=== PATIENT | female | born 1940 | race Caucasian/White ===

== ENCOUNTER 2025-05-26 09:04 | Outpatient (AMB) | payer BC, SELFPAY ==
--- NOTE | 2025-05-26 09:25 | A.OFFPC_ITS ---
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 History of Present Illness The patient is an 84-year-old female presenting with the management of multiple chronic conditions including frontal lobe dementia and hypertension. Frontal lobe dementia: The patient was diagnosed with frontal lobe dementia in [place] after exhibiting repetitive questioning and memory loss. The condition was identified when she began forgetting conversations shortly after they occurred. She was prescribed memantine, which is administered as a full tablet in the morning and a half tablet in the evening to manage dizziness associated with her blood pressure medication. Hypertension: The patient has a history of fluctuating blood pressure, with recent readings showing elevated levels at 178/85 mmHg. At home, her blood pressure is typically normal, suggesting situational elevation due to changes in routine and environment. Heart murmur: A heart murmur was detected during the examination, which had not been previously identified. Thyroid disorder: The patient is on medication for hypothyroid with levothyroxine 50 mcg daily Osteopenia: The patient is due for a bone density scan, with a previous diagnosis of osteopenia but not osteoporosis. History of fall with spinal fusion: The patient experienced a fall approximately a year and a half ago, resulting in a spinal fracture that required surgical fusion. She reports occasional back pain and has been advised to undergo physical therapy to improve her gait. Decreased appetite: The patient has a decreased appetite, requiring reminders to eat, which has led to weight gain since moving from [place]. Dry skin: The patient has a history of dry skin, managed with topical lotions. Surgical History: - Spinal fusion surgery following a fall Medications: - Memantine 5 mg for frontal lobe jair ia - Diltiazem 120 mg for hypertension - Levothyroxine 50 mcg for thyroid disor inez - Simvastatin 40 mg for hyperlipidemia - Farxiga 10 mg for heart protection - B complex with vitamin C for general h ealth Social History: - Family status: for over 60 yea rs - Housing: Recently moved from [place] t o live with family - Functional status: Requires assistance with medication and reminders to eat Review of Systems - Neurological: Reports memory loss and repetitive questioning - Cardiovascular: Denies previous awaren ess of heart murmur - Endocrine: Reports thyroid disorder - Musculoskeletal: Reports occasional ba ck pain post-fall - Dermatological: Reports dry skin 10-point ROS reviewed and negative excep t as noted in HPI Past Medical History - Frontal lobe dementia - Hypertension - Thyroid disorder - Osteopenia - History of fall with spinal fusion Health Maintenance - Bone density scan recommended for oste openia Physical Exam General: Well-appearing, in no acute distress. Vital signs: Blood pressure elevated at 178/85. HEENT: Normocephalic, atraumatic. PERRLA, EOMI. Conjunctiva clear, sclera anicteric. Oropharynx clear, mucous membranes moist. TMs intact bilaterally. Ear wax noted in one ear. Neck: Supple, no lymphadenopathy, no thyromegaly, no JVD or carotid bruits. Cardiovascular: RRR, normal S1/S2, heart murmur detected, no rubs or gallops. Peripheral pulses 2+ and symmetric. No edema. Respiratory: Lungs clear to auscultation bilaterally, no wheezes, rales, or rhonchi. Normal effort. Abdomen: Soft, non-tender, non-distended. Normoactive bowel sounds. No hepatosplenomegaly, no masses. MSK: Full range of motion, no joint swelling or deformity. History of fall with left upper side fusion. Normal gait, though patient has been dragging feet post- fall. Skin: Warm, dry, intact. No rashes, lesions, or pallor. History of dry skin. Neuro: Alert and oriented x3. Cranial nerves II-XII intact. Strength 5/5 throughout. Sensation intact. Reflexes 2+ symmetric. Normal coordination and gait. Psych: Appropriate mood and affect. Normal judgment and insight. Noted memory issues consistent with front lobe dementia diagnosis. Plan 1. Frontal Lobe Dementia - Continue memantine with adjusted dosin g to manage dizziness. 2. Hypertension - Monitor blood pressure at home to asse ss for situational hypertension. 3. Heart Murmur - Referral to cardiology for echocardiog dereck and electrocardiogram. 4. Thyroid Disorder - Continue current thyroid medication re gimen. 5. Osteopenia - Schedule bone density scan to monitor progression. 6. History Of Fall With Spinal Fusion - Recommend physical therapy to improve gait and manage back pain. 7. Decreased Appetite - Referral to batch mixing truck driver for nutritional support and appetite management. 8. Dry Skin - Prescribe ammonium lactate lotion for skin hydration. Discussion Notes During the visit, I discussed the management of the patient's chronic conditions, including the continuation of memantine for dementia and the need for cardiology referral for the newly detected heart murmur. We also talked about the importance of monitoring blood pressure at home and the upcoming bone density scan. I emphasized the need for physical therapy to address gait issues post-fall and referred the patient to a batch mixing truck driver to manage her decreased appetite. Additionally, I prescribed ammonium lactate lotion for her dry skin. Patient Instructions - Continue taking memantine as prescribe d, adjusting the evening dose if dizziness occurs. - Monitor blood pressure regularly at [facility] and report any significant changes. - Attend cardiology appointment for furt her evaluation of heart murmur. - Schedule and attend bone density scan. - Follow up with physical therapy to imp rove walking and manage back pain. - Meet with batch mixing truck driver to discuss nutriti onal needs and appetite management. - Apply ammonium lactate lotion twice da abdirizak for dry skin. Medical Decision Making In managing this patient, I prioritized addressing her chronic conditions, particularly the frontal lobe dementia and hypertension. The newly detected heart murmur necessitates further evaluation by cardiology, and the patient's blood pressure should be monitored at home to differentiate between chronic and situational hypertension. The bone density scan is crucial for assessing osteopenia progression. Physical therapy is recommended to aid in recovery from her fall and improve her gait. Nutritional support is essential due to her decreased appetite, and skin hydration will be managed with ammonium lactate lotion. Total time spent caring for the patient today was _30 minutes. This includes time spent before the visit reviewing the chart, time spent documenting, and time spent reviewing laboratory results, diagnostic imaging, medications, performing a medically necessary evaluation, counseling on diagnoses, care coordination, ordering appropriate tests, ordering appropriate medications. [facility] Medical History (Updated 05/26/25 @ 10:49 by Juan Rosario MD) Decreased appetite History of fall Osteoporosis screening Post-menopause Systolic murmur Family History (Updated 05/26/25 @ 09:26 by Esteban Brown MA) Father No problems noted. Mother No problems noted. Social History Housing: House Patient Tobacco Use Status: Never used Tobacco service: No Current occupational status: retired Cognitive needs: No Hearing needs: No Vision needs: Yes (rx glasses) Questionnaire PHQ-9 Over the last 2 weeks, how often have you been bothered by any of the following problems? 1. Little interest or pleasure in doing things: not at all 2. Feeling down, depressed, or hopeless: not at all 3. Trouble falling or staying asleep, or sleeping too much: not at all 4. Feeling tired or having little energy: not at all 5. Poor appetite or overeating: several days 6. Feeling bad about yourself - or that you are a failure or have let yourself or your family down: not at all 7. Trouble concentrating on things, such as reading the newspaper or watching television: not at all 8. Moving or speaking so slowly that other people could have noticed. Or the opposite - being so fidgety or restless that you have been moving around a lot more than usual: not at all 9. Thoughts that you would be better off or of hurting yourself in some way: not at all Total score: 1 Source: Developed by Drs. Brice Mayers, Geeta Gibson, Francisco Staples and colleagues, with an educational harriett from [employer]. Thrive Questionnaire Date Thrive assessed: 05/25/25 I am a: Patient What is your living situation today?: I have a steady place to live Within the past 12 months, did the food you bought not last and you didn't have the money to get more?: Never true Within the past 12 months, did you worry whether your food would run out before you got money to buy more?: Never true Do you have trouble paying for medicines?: No Do you have trouble getting transportation to medical appointments?: No Do you have trouble paying your heating and electricity bill?: No Do you have trouble taking care of your child, family member or friend?: No Do you have trouble with day-to-day activities such as bathing, preparing meals, shopping, managing finances, etc.?: No Are you currently unemployed and looking for a job?: No Are you interested in more education?: No Please select the resources that you would like help with: None Currently or been in a relationship where the following occur: No concerns reported THRIVE Score: 0 AUDIT C Alcohol Use Questionnaire (AUDIT-C) 1. How often do you have a drink containing alcohol?: Never 2. How many drinks containing alcohol do you have on a typical day when you are drinking?: 1 or 2 3. How often do you have six or more drinks on one occasion?: Never Total Score: 0 KEVIN-7 AMB Questionnaire KEVIN-7 Feeling nervous, anxious, or on edge: 0 = Not at all Not being able to stop or control worryin = Not at all Worrying too much about different things: 0 = Not at all Trouble relaxin = Not at all Being so restless that it is hard to sit still: 0 = Not at all Becoming easily annoyed or irritable: 0 = Not at all Feeling afraid as if something awful might happen: 0 = Not at all Total KEVIN-7 score (0-4 normal; 5-9 mild; 10-14 moderate; 15-21 severe): 0 Source: Developed by Drs. Brice Mayers, Geeta Gibson, Francisco Staples and colleagues, with an educational harriett from [employer]. Physical exam (Primary Care) Vital Signs: Last Vital Signs Temp 97.8 F 05/26/25 09:58 Pulse 87 05/26/25 09:58 Resp 16 05/26/25 09:58 BP 178/85 H 05/26/25 09:58 Pulse Ox 91 L 05/26/25 09:58 Oxygen Delivery Method Room Air 05/26/25 09:58 BMI result Body Mass Index 24.8 Tobacco/Smoking Status: Tobacco use Status Tobacco use date assessed 05/26/25 05/26/25 09:26 Patient Tobacco Use Status Never used Tobacco 05/26/25 09:26 PHQ-9: PHQ-9 Score PHQ-9: Total score 1 05/26/25 10:07 Thrive Assessment: Date of Thrive Assessment Date Thrive assessed 05/25/25 05/26/25 09:26 Currently or been in a relationship where the following occur: No concerns reported Coding Level of Care Code New Pt Level 4 (79457) Diagnoses Frontal lobe dementia G31.09; F02.80 Hypothyroid E03.9 Hypertension I10 Systolic murmur R01.1 Osteopenia after menopause M85.80; Z78.0 Post-menopause Z78.0 Osteoporosis screening Z13.820 History of fall Z91.81 Decreased appetite R63.0 Xerosis cutis L85.3 Assessment & Plan Assessment & Plan (1) Frontal lobe dementia: Code(s): G31.09 - Other frontotemporal neurocognitive disorder; F02.80 - Dementia in other diseases classified elsewhere, unspecified severity, without behavioral disturbance, psychotic disturbance, mood disturbance, and anxiety (2) Hypothyroid: Code(s): E03.9 - Hypothyroidism, unspecified (3) Hypertension: Code(s): I10 - Essential (primary) hypertension (4) Systolic murmur: Code(s): R01.1 - Cardiac murmur, unspecified Category: Medical (5) Osteopenia after menopause: Code(s): M85.80 - Other specified disorders of bone density and structure, unspecified site; Z78.0 - Asymptomatic menopausal state (6) Post-menopause: Code(s): Z78.0 - Asymptomatic menopausal state Category: Medical (7) Osteoporosis screening: Code(s): Z13.820 - Encounter for screening for osteoporosis Category: Medical (8) History of fall: Code(s): Z91.81 - History of falling Category: Medical (9) Decreased appetite: Code(s): R63.0 - Anorexia Category: Medical (10) Xerosis cutis: Code(s): L85.3 - Xerosis cutis Plan Orders: Orders Comprehensive Met. Panel Today Z13.9 - Encounter for screening, unspecified Hepatitis B Surface Antibody Today Z13.9 - Encounter for screening, unspecified Hepatitis B Surface Antigen Today Z13.9 - Encounter for screening, unspecified Hepatitis C Antibody Today Z13.9 - Encounter for screening, unspecified Lipid Panel Today Z13.9 - Encounter for screening, unspecified Magnesium Today Z13.9 - Encounter for screening, unspecified TSH reflex Free T4 Today Z13.9 - Encounter for screening, unspecified UA CC w/rflx Micro + Cult Today Z13.9 - Encounter for screening, unspecified Vitamin B12 and Folate Today Z13.9 - Encounter for screening, unspecified ECG 12 lead EKG Today R01.1 - Cardiac murmur, unspecified CA echo transthoracic complete Today R01.1 - Cardiac murmur, unspecified Complete Blood Count Auto Diff Today Z13.9 - Encounter for screening, unspe cified Hemoglobin A1c Today Z13.9 - Encounter for screening, unspecified HIV Ab/Ag Today Z13.9 - Encounter for screening, unspecified Vitamin D 1,25 dihydroxy Today Z13.9 - Encounter for screening, unspecified XR DEXA axial skeleton Today Z13.820 - Encounter for screening for osteoporosis, Z78.0 - Asymptomatic menopausal state, Z91.81 - History of falling Referrals Cardiology Referral R01.1 - Cardiac murmur, unspecified Nurse Navigator Referral R63.0 - Anorexia Medications: New ammonium lactate 5% (Lac-Hydrin Five) 1 appl topical BID 226 grams 3RF levothyroxine 50 mcg PO DAILY 90 caps 0RF memantine (Namenda) 5 mg PO BID 180 tabs 0RF simvastatin 40 mg PO DAILY 90 tabs 0RF diltiazem HCl ER (Tiazac) 120 mg PO BID 180 caps 0RF B-complex with vitamin C (Super B/C capsule) 1 cap PO DAILY 90 caps 0RF carbamide peroxide 6.5% (Debrox) 5 drps otic (ears) Q12H 15 mL 0RF 4 days levocetirizine 5 mg PO DAILY 90 tabs 0RF dapagliflozin propanediol (Farxiga) 10 mg PO DAILY 90 tabs 0RF
[2025-05-26 09:58] VITALS: BP 178/85; PULSE 87; RESP 16; TEMP 36.6; O2SAT 91; BMI 24.8
== END 2025-05-26 10:58 | disposition home or self-care (01) ==
LOC: HO.HMCFMS 09:05
PROVIDERS: Visit Provider Student in an Organized Health Care Education/Training Program
DX: G31.09 Other frontotemporal neurocognitive disorder (principal); F02.80 Dementia in other diseases classified elsewhere, unspecified severity, without behavioral disturbance, psychotic disturbance, mood disturbance, and anxiety; E03.9 Hypothyroidism, unspecified; I10 Essential (primary) hypertension; R01.1 Cardiac murmur, unspecified; M85.80 Other specified disorders of bone density and structure, unspecified site; Z78.0 Asymptomatic menopausal state; Z13.820 Encounter for screening for osteoporosis; Z91.81 History of falling; R63.0 Anorexia; L85.3 Xerosis cutis

== ENCOUNTER 2025-05-26 09:04 | Outpatient (REF) | payer BC, SELFPAY ==
[2025-05-26 13:44] LABS: Appearance Urine Clear; Glucose Urine UA >=1000 mg/dL (Negative); PH 5.0 (5.0-9.0); Specific Gravity - Urine 1.025 (1.005-1.025); UMIC TRIGGER UACC YES
[2025-05-26 13:56] LABS: MANUAL DIFF FLAG NO
[2025-05-26 13:59] LABS: UACC Culture Trigger YES
[2025-05-26 14:02] LABS: Hematocrit 41.7 % (37.0-47.0); Hemoglobin 13.1 g/dl (12.0-16.0); Imm Gran Abs Auto 0.07 X10*3/uL (0.00-0.03); Imm Gran Pct Auto 0.6 % (0.0-0.4); Lymphocytes Absolute Auto 3.1 X10*3/uL (1.2-4.9); Mean Corpuscular HGB Conc 31.4 g/dl (31.0-35.0); Mean Corpuscular Hemoglobin 26.8 pg (27.0-33.0); Mean Corpuscular Volume 85.5 fL (80.0-98.0); NRBC Abs Auto 0.000 X10*3/uL (0.0-0.012); NRBC Pct Auto 0.0 /100WBC (0.0-0.2); Platelet Count 284 X10*3/uL (160-400); Red Blood Count 4.88 X10*6/uL (4.20-5.50); White Blood Count 12.2 X10*3/uL (4.8-10.8)
[2025-05-26 18:38] LABS: Alanine Aminotransferase 22 U/L (0-31); Albumin Level 4.8 g/dL (3.5-5.0); Alkaline Phosphatase 99 U/L (39-117); Anion Gap 14 (12-20); Aspartate Amino Transferase 32 U/L (5-31); Blood Urea Nitrogen 17 mg/dL (9-16); Calcium 9.6 mg/dL (8.4-10.2); Carbon Dioxide 25 mmol/L (22-29); Chloride 108 mmol/L (96-108); Cholesterol 174 mg/dL (<200); Estimated Glomerular Filt Rate 49; HDL Cholesterol 45 mg/dL (>40); Magnesium 2.7 mg/dL (1.6-2.6); Potassium 4.0 mmol/L (3.3-5.1); Sodium 143 mmol/L (135-145); Total Protein 7.7 g/dL (6.5-8.0); Triglycerides 188 mg/dL (<150)
[2025-05-26 18:57] LABS: Folate 9.9 ng/mL (> or = 4.0); Vitamin B12 342 pg/mL (200-900)
[2025-05-27 03:53] LABS: HBS Num1 0.31 mIU/mL (0-7.99); HBsAGNum1 0.45 S/CO (0.00-0.99); HIV Num 1 0.19 S/CO (0.00-0.99); Hepatitis B Surface Antigen Negative (Negative); ~HepC Num1 0.08 S/CO (0.00-0.79); ~Hepatitis B Surface Antibody NONREACTIVE (Nonreactive); ~Hepatitis C Antibody Nonreactive (Nonreactive)
[2025-05-30 16:58] LABS: VITAMIN D (1,25 OH) D3 38 pg/mL; Vit D (1,25-Dihydroxy) Total 38 pg/mL (18-72); Vitamin D (1,25 OH) D2 <8 pg/mL
== END 2025-05-26 09:05 | disposition home or self-care (01) ==
LOC: HO.HKASLDS 09:04
PROVIDERS: PCP Student in an Organized Health Care Education/Training Program; Visit Provider Student in an Organized Health Care Education/Training Program
DX: I10 Essential (primary) hypertension (principal); G31.09 Other frontotemporal neurocognitive disorder; F02.80 Dementia in other diseases classified elsewhere, unspecified severity, without behavioral disturbance, psychotic disturbance, mood disturbance, and anxiety; R01.1 Cardiac murmur, unspecified; M85.80 Other specified disorders of bone density and structure, unspecified site; L85.3 Xerosis cutis; E78.5 Hyperlipidemia, unspecified; E03.9 Hypothyroidism, unspecified; R63.0 Anorexia; Z78.0 Asymptomatic menopausal state; Z13.820 Encounter for screening for osteoporosis; Z91.81 History of falling; R73.03 Prediabetes
CPT/HCPCS: 36415; 80053; 80061; 81001; 82607; 82652; 82746; 83036; 83735; 84443; 85025; 86706; 86803; 87086; 87340; 87389; 96127

== ENCOUNTER 2025-06-09 12:58 | Outpatient (AMB) | payer BC, SELFPAY ==
[2025-06-09 13:01] VITALS: BP 171/91; PULSE 86; RESP 16; TEMP 36.4; O2SAT 93; BMI 24.8
--- NOTE | 2025-06-09 13:01 | A.OFFPC_ITS ---
Vital Signs 06/09/25 13:01 Height 5 ft 1.02 in Weight 131 lb 8 oz BMI 24.8 BP 171/91 H Blood Pressure Location Rt brachial Position Sitting Respiration 16 Pulse 86 Pulse Source Pulse Oximeter Temp 97.5 F Temp Source Oral Pulse Oximetry (%) 93 Oxygen Delivery Method Room Air Intake Visit Reasons: 2 wk f/u [employer] Required: No Accompanied by: Daughter Allergies No Known Allergies Allergy (Verified 06/09/25 13:02) Medication List - Last Reconciled 06/09/25 by Juan Rosario MD ammonium lactate 5% (Lac-Hydrin Five) 1 appl topical BID B-complex with vitamin C (Super B/C capsule) 1 cap PO DAILY carbamide peroxide 6.5% (Debrox) 5 drps otic (ears) Q12H 4 days dapagliflozin propanediol (Farxiga) 10 mg PO DAILY diltiazem HCl ER (Tiazac) 120 mg PO BID levocetirizine 5 mg PO DAILY levothyroxine 50 mcg PO DAILY memantine (Namenda) 5 mg PO BID nitrofurantoin macrocrystal 100 mg PO Q12H simvastatin 40 mg PO DAILY Tobacco use date assessed: 05/26/25 Dental Screening Dental Screen Date: 06/09/25 Did you have a dental visit in the last 12 months?: No Did you have a dental problem in the last 6 months where you did not have access to dental care?: No Was dental information given to patient?: No HPI HPI Comments History of Present Illness Details History of Present Illness The patient is an 84-year-old female presenting with a request for a review of lab results. Leukocytosis and Urinary Tract Infection: The patient has a mild leukocytosis, discovered during routine lab work. She denies any symptoms suggestive of infection, such as fever or dysuria. A recent urinalysis revealed pyuria and a positive leukocyte esterase, suggestive of a subclinical urinary tract infection. Chronic Kidney Disease: The patient has been diagnosed with stage 3 chronic kidney disease, characterized by a glomerular filtration rate of 49. There is a history of proteinuria, and she has been managed with Farxiga for renal protection. Despite the condition, she has no specific renal symptoms. Prediabetes: The patient's A1c is 5.9%, placing her in the prediabetes range. This condition has been stable, with no reported episodes of hyperglycemia. Dietary management has been discussed previously. Dyslipidemia: The patient has an elevated triglyceride level of 188, while her LDL and HDL cholesterol levels remain within acceptable ranges. There is no history of significant cardiovascular events. Chronic Obstructive Pulmonary Disease: The patient has a history of COPD, diagnosed when she was residing in [place]. She is reportedly using an inhaler and an additional round inhaler device. She has not reported any acute exacerbations recently. Surgical History: - None reported Medications: - Farxiga for renal protection - Inhalers for Chronic Obstructive Pulmo nary Disease Social History: - Former smoker, quit decades ago - Current use of an inhaler for COPD sym ptoms Family History: - None reported Diagnostic Results: - Labs: - White blood cell count: 12.2 ( mildly elevated) - Immature granulocyte percentage: 0.6% (high) - Absolute immature granulocytes: 0.07 - Creatinine: Normal - Glomerular filtration rate: 49 - A1c: 5.9% - Triglycerides: 188 (high) - Total cholesterol: 124 - LDL cholesterol: 92 - HDL: 45 - Magnesium: 2.7 (high) - AST: 32 (mildly elevated) - Urinalysis: Protein 1+, positive leuko cyte esterase, WBC 11-20 - Diagnostic tests: - Hepatitis B, Hepat itis C, HIV: All negative Past Medical History - Chronic Kidney Disease, Stage 3 - Prediabetes - Dyslipidemia - Chronic Obstructive Pulmonary Disease Health Maintenance - Infectious disease screening: Hepatiti s B, Hepatitis C, and HIV all negative. - Discussion of lifestyle changes relate d to prediabetes management, including dietary recommendations to reduce carbohydrate intake. REPLACED BY [facility] Medical History (Updated 06/09/25 @ 15:16 by Juan Rosario MD) COPD (chronic obstructive pulmonary disease) Dyslipidemia Prediabetes Chronic kidney disease Decreased appetite History of fall Osteoporosis screening Post-menopause Systolic murmur Family History Father No problems noted. Mother No problems noted. Social History Housing: House Patient Tobacco Use Status: Never used Tobacco service: No Current occupational status: retired Cognitive needs: No Hearing needs: No Vision needs: Yes (rx glasses) Questionnaire Thrive Questionnaire Date Thrive assessed: 05/25/25 I am a: Patient What is your living situation today?: I have a steady place to live Within the past 12 months, did the food you bought not last and you didn't have the money to get more?: Never true Within the past 12 months, did you worry whether your food would run out before you got money to buy more?: Never true Do you have trouble paying for medicines?: No Do you have trouble getting transportation to medical appointments?: No Do you have trouble paying your heating and electricity bill?: No Do you have trouble taking care of your child, family member or friend?: No Do you have trouble with day-to-day activities such as bathing, preparing meals, shopping, managing finances, etc.?: No Are you currently unemployed and looking for a job?: No Are you interested in more education?: No Please select the resources that you would like help with: None Currently or been in a relationship where the following occur: No concerns reported THRIVE Score: 0 Review of Systems Narrative Review of Systems - General: Denies signs of infection 10-point ROS reviewed and negative except as noted in HPI Physical exam (Primary Care) Vital Signs: Last Vital Signs Temp 97.5 F 06/09/25 13:01 Pulse 86 06/09/25 13:01 Resp 16 06/09/25 13:01 BP 171/91 H 06/09/25 13:01 Pulse Ox 93 06/09/25 13:01 Oxygen Delivery Method Room Air 06/09/25 13:01 BMI result Body Mass Index 24.8 Tobacco/Smoking Status: Tobacco use Status Tobacco use date assessed 05/26/25 06/09/25 13:02 Patient Tobacco Use Status Never used Tobacco 06/09/25 13:02 Thrive Assessment: Date of Thrive Assessment Date Thrive assessed 05/25/25 06/09/25 13:02 Currently or been in a relationship where the following occur: No concerns reported Narrative Physical Exam General: Well-appearing, in no acute distress. Vital signs: Within normal limits. HEENT: Normocephalic, atraumatic. PERRLA, EOMI. Conjunctiva clear, sclera anicteric. Oropharynx clear, mucous membranes moist. TMs intact bilaterally. Neck: Supple, no lymphadenopathy, no thyromegaly, no JVD or carotid bruits. Cardiovascular: RRR, normal S1/S2, no murmurs, rubs, or gallops. Peripheral pulses 2+ and symmetric. No edema. Respiratory: Lungs clear to auscultation bilaterally, no wheezes, rales, or rhonchi. Normal effort. History of COPD, on inhaler therapy. Abdomen: Soft, non-tender, non-distended. Normoactive bowel sounds. No hepatosplenomegaly, no masses. MSK: Full range of motion, no joint swelling or deformity. Normal gait. Skin: Warm, dry, intact. No rashes, lesions, or pallor. Neuro: Alert and oriented x3. Cranial nerves II-XII intact. Strength 5/5 throughout. Sensation intact. Reflexes 2+ symmetric. Normal coordination and gait. Psych: Appropriate mood and affect. Normal judgment and insight. Coding Level of Care Code Est Pt Level 4 (02151) Diagnoses Chronic kidney disease N18.9 Prediabetes R73.03 Dyslipidemia E78.5 COPD (chronic obstructive pulmonary disease) J44.9 Leukocytosis D72.829 Abnormal urine findings R82.90 UTI (urinary tract infection) N39.0 Assessment & Plan Assessment & Plan (1) Chronic kidney disease: Code(s): N18.9 - Chronic kidney disease, unspecified Category: Medical (2) Prediabetes: Code(s): R73.03 - Prediabetes Category: Medical (3) Dyslipidemia: Code(s): E78.5 - Hyperlipidemia, unspecified Category: Medical (4) COPD (chronic obstructive pulmonary disease): Code(s): J44.9 - Chronic obstructive pulmonary disease, unspecified Category: Medical (5) Leukocytosis: Code(s): D72.829 - Elevated white blood cell count, unspecified (6) Abnormal urine findings: Code(s): R82.90 - Unspecified abnormal findings in urine (7) UTI (urinary tract infection): Code(s): N39.0 - Urinary tract infection, site not specified Plan Consent Patient was informed and verbally consented to the use of an ambient scribe for clinic note documentation during this visit. Plan 1. Leukocytosis And Urinary Tract Infection - Treat the urinary tract infection with antibiotics, specifically a five-day course of a suitable antibiotic. - Plan for a repeat complete blood count in 3-6 months to ensure resolution of the leukocytosis. 2. Chronic Kidney Disease, Stage 3 - Continue current management with Farxiga for renal protection. - Monitor renal function regularly, avoiding nephrotoxic drugs such as NSAIDs. 3. Prediabetes - Reinforce lifestyle modifications focusing on carbohydrate reduction. - Monitor A1c levels periodically to assess diabetic progression. 4. Dyslipidemia - Continue monitoring lipid panel; discuss dietary modifications to improve triglyceride levels. 5. Chronic Obstructive Pulmonary Disease - Continue current inhaler regimen for symptom management. - Encourage smoking abstinence and monitor for any signs of exacerbation. Discussion Notes I reviewed the recent laboratory findings with the patient and her family, explaining the leukocytosis and its likely connection to a urinary tract infection based on urinalysis results. Given her asymptomatic presentation, I have prescribed a brief course of antibiotics, a common approach in elderly patients due to their risk profile. We will reassess leukocyte counts in 3-6 months. We discussed her chronic conditions including poorly functioning kidneys staged at CKD Stage 3, managed by Farxiga, and prediabetes evidenced by her A1c of 5.9%. I emphasized the importance of continued renal protection and dietary alterations to manage glucose levels and reducing potential diabetes onset. Her dyslipidemia, indicated by elevated triglycerides, will be monitored, and we discussed strategies to lower these levels, such as cutting down on sugary or carbohydrate-rich foods. I addressed her history of COPD, prescribed inhalers, and her past smoking history, and advised her to maintain current treatment while staying vigilant about exacerbation symptoms. Follow-ups will ensure stability or correct progression, anticipating any necessary interventions. Patient Instructions - Take antibiotics as prescribed for your urinary tract infection to help lower your white blood cells. - Schedule a follow-up appointment in three months to have your blood work repeated. - Keep taking Farxiga to protect your kidneys. - Your blood sugar and triglyceride levels need watching. Cut down on sugary foods and refined carbohydrates. - Stay off cigarettes and use your inhalers as directed for lung health. - If you feel worse or notice any new symptoms, call us right away. Medical Decision Making The patient, an 84-year-old female, presented with a primary concern of leukocytosis identified in her lab results, likely secondary to a urinary tract infection as indicated by urinalysis. Given her age and asymptomatic presentation, the clinical decision involved a conservative antibiotic treatment to manage the potential UTI to preempt complications. We arranged for subsequent CBC testing to confirm resolution. Her chronic conditions, including CKD stage 3 and prediabetes, require ongoing management. Avoiding nephrotoxic medications while using Farxiga helps slow her CKD progression. Monitoring and lifestyle interventions were recommended to manage prediabetes and avoid diabetes onset, with a focus on diet, particularly carbohydrate intake moderation. Persistent dyslipidemia findings, notably high triglycerides, prompt dietary consultations to decelerate cardiovascular risk. Confirmation of current inhaler usage and encouragement of smoking abstinence for her COPD addresses respiratory wellness. Overall, the strategy encompasses comprehensive lifestyle and pharmacological management, aligned with her conditions and aimed at long-term health surveillance. Total time spent caring for the patient today was 20 minutes. This includes time spent before the visit reviewing the chart, time spent documenting, and time spent reviewing laboratory results, diagnostic imaging, medications, performing a medically necessary evaluation, counseling on diagnoses, care coordination.. Medications: New nitrofurantoin macrocrystal must administer with a meal/food 100 mg PO Q12H 10 caps 0RF
--- OUTSIDE RECORDS SUMMARY | 2025-06-09 15:38 | XMS_ITS | Patient Health Record ---
Author Organization [facility]ianna [facility] Dick Address [address] [place] [address] Care Team Providers Care Lighting Engineer Name Role Phone Joseph Jensen MD Primary Care Provider Unavail able BlackGrazyna Unavailable [phone] Reason For Referral No Information Medications Medication SIG (Take, Route, Frequency, Duration) Notes Start Date End Date Status Carvedilol 6.25 MG 1 tablet with food Orally Twice a day; Duration: 30 day(s) Active Lisinopril 20 MG 1 tablet Orally Once a day; Duration: 30 day(s) Active Simvastatin 40 MG 1 tablet every eveni ng Orally Once a day; Duration: 30 day(s) Active Levothyroxine Sodium 50 MCG 1 tablet juan carlos morning on an empty stomach Orally Once a day; Duration: 30 day(s) Active Social History Alcohol Screen Question Answer Notes Did you have a drink containing alcohol in the p ast year? Yes Points 0 Interpretation Negative Problems Problem Type SNOMED Code ICD Code Onset Dates Problem Status W/U Status Risk Notes Problem Bursitis (03865205) Bursitis (727.3) Active confirmed Problem Achilles bursitis (853592265) Achilles Tendonitis Bursitis (726.71) Active confirmed Problem Myositis (94034825) Myositis (729.1) Active confirmed Problem Pain in limb (42843748) Pain in Limb (729.5) Active confirmed Problem Plantar fasciitis (128379315) Plantar Fasciitis (728.71) Active confirmed Plan Of Treatment Pending Test Test Name Order Date X ray : Foot, left 3V 04/02/2012 Insurance Providers Payer Name Payer Address Payer Phone Subscriber Number Group Number Insured Name Patient Relationship to Insured Coverage Start Date Coverage End Date [employer] Medicare Complete [address] [address] [place] [address] [id number] [address] Mahmood Self - patient is the insured Medical (General) History Medical History History ICD Code high blood pressure osteoporosis thyroid disorder chicken pox
== END 2025-06-09 13:34 | disposition home or self-care (01) ==
LOC: HO.HMCFMS 12:59
PROVIDERS: Visit Provider Student in an Organized Health Care Education/Training Program
DX: N18.9 Chronic kidney disease, unspecified (principal); R73.03 Prediabetes; E78.5 Hyperlipidemia, unspecified; J44.9 Chronic obstructive pulmonary disease, unspecified; D72.829 Elevated white blood cell count, unspecified; R82.90 Unspecified abnormal findings in urine; N39.0 Urinary tract infection, site not specified